=== PATIENT | female | born 1955 | race African-American/Black ===

== ENCOUNTER 2020-01-27 07:52 | Emergency (ER) | payer MEDICAID, OTHER ==
[~2020-01-27] VITALS: Ht 154.9 cm; Wt 94.8 kg
[~2020-01-27 07:52] MED LIST: ALLOPURINOL300 M1 ORAL; AMLODIPINE BESYL5 MG ORAL; ASPIRIN81 MG ORAL; BENZTROPINE MESY1 MG PO; GLIPIZIDE5 MG ORAL; LIPITOR20 MG ORAL; LOMOTIL TABLET1 EACH ORAL; LORATADINE10 M1 PO; LORAZEPAM1 MG ORAL; LOSARTAN POTASS50 MG ORAL; MAPAP325 M1 PO; METFORMIN HCL500 M1 ORAL; METRONIDAZOLE500 MG ORAL; NITROSTAT0.4 M1 SL; OMEPRAZOLE40 M1 ORAL; PEPCID20 MG ORAL; PROTONIX40 MG ORAL; TRAMADOL HCL50 MG ORAL; VALPROIC ACID250 MG PO; ZOFRAN4 M3 ORAL; ZYPREXA2.5 MG ORAL
[2020-01-27 08:03] VITALS: BP 138/89
--- NOTE | 2020-01-27 08:05 | NUR ---
ED Nurse Note:pt. c/o right shoulder /hand pain, she fell 1 month ago, had x-ray done, hx of arthritis
--- NOTE | 2020-01-27 08:21 | Emergency Room Report ---
History of Present Illness General Chief Complaint: Upper Extremity Injury Source: Patient Present Illness HPI 64-year-old -English female with prior history of psychosis, DM presents with chief complaint of right shoulder pain status post fall on the bus 1 month ago. She states she was initially seen by a physician who evaluated her head trauma and said "everything was normal". Patient has tried Motrin with relief of her symptoms, however stopped taking it secondary to feeling like it caused her to have "an upset stomach". She denies any syncope, headache, vision changes, neck pain, back pain, chest pain, shortness of breath, melena, hematochezia, n umbness, tingling or difficulty walking. The patient's symptoms were gradual onset, severity was moderate, duration since 1 month ago. Quality: Aching Past medical history: Psychosis, DM Past surgical history: Cholecystectomy, hernia repair Smoking: Denies Alcohol use: Denies Drug use: Denies Review of systems: CONST: No fevers or chills, No night sweats PULMONARY: No productive cough, No shortness of breath CARDIAC: No chest pain, No palpitations GI: No vomiting, No diarrhea , No melena_or_BRBPR : No dysuria, No hematuria, No discharge NEURO: No new_focal_weakness_or_numbness, No confusion, No vision changes 14 point Review of Systems is otherwise negative except per HPI Physical Exam: GENERAL: Awake_alert_ nontoxic, no acute distress Spo2 98% on RA -normal EYES: Extraocular muscles are intact. Conjunctivae clear. Lids without swelling ENT: External nose and ear normal_in_appearance. Oropharynx clear. Head_atraumatic, Moist_oral_mucosa NECK: No JVD. No meningismus. No thyromegaly. Supple. Trachea midline RESP: Normal respiratory effort. Symmetric rise. No stridor. Clear_to_auscultation_No_rales_No_wheezes CARDIAC: Regular rate and regular rhytm. No_significant pedal edema. ABDOMEN: Soft. Nondistended. Nontender_No_rebound_or_guarding. MSK: Normal muscle tone, without rigidity. Extremities without asymmetric deformity or swelling. Upper extremity exam: Right Elbow: No swelling / effusion appreciated, no significant pain with passive range of motion Wrist: No swelling / effusion appreciated, no significant pain with passive range of motion Lateral epicondyle: no tenderness / swelling / ecchymoses Medial epicondyle: no tenderness / swelling / ecchymoses Radial pulse: 2+ Capillary refill: <3 seconds in all fingers All fingers: full range of motion without any tenderness / swelling / deformity / evidence of infection Scaphoid: no tenderness / swelling / ecchymoses, no pain with axial loading of the thumb Radian / Median / Ulnar nerves: all intact (finger opposition, finger adduction / abduction, thumb dorsiflexion) Sensation intact to light touch: in all fingers Strength 5/5 with: wrist dorsi / volar flexion, 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 No visible cyanosis or pallor NEUROLOGIC: Alert, oriented x3. Motor_and_sensation_grossly_intact. No truncal ataxia. Gait_normal Psych: Normal mood and affect, normal judgment and insight - COORDINATION OF CARE Case was discussed with: Patient Any labs and imaging that were ordered were interpreted as part of the medical decision making: Medical Decision Making/Plan: Differential diagnosis includes musculoskeletal pain, fracture, dislocation, compartment syndrome, arterial occlusion, nerve damage, among others. Distally the patient has capillary refill <2 seconds and strong pulses. There is no pallor or pain out of proportion to exam. There is no significant swelling, deformity, or report of significant dislocation that subsequently reduced. No evidence of arterial occlusion or injury. The associated joints have full range of motion without any significant pain or restriction in mobility. No evidence at this time of major ligamentous disruption. Xrays of the right upper extremity are within normal limits, compartments are soft, the patient is able to bear weight and has no neurologic deficits. No evidence of fracture, dislocation, foreign body, significant nerve damage, compartment syndrome at this time. Patient was placed in a right upper extremity sling for comfort. Toradol was administered with relief of pain. Patient is neurologically intact with no abnormal cerebellar signs. Fall was one month ago. No recurrent head trauma. CT Jenkins head criteria negative. No blood thinner use. However, the patient was informed that occult fractures or foreign bodies are not always apparent on their first visit and understand to follow up with their regular doctor for a reevaluation within the next 2-3 days, to ensure their symptoms completely resolve. A Transit Bus Operator consult ordered. All needs were met during this ED visit including food and water, change of clothes, care home referral/resources, and transportation. PROCEDURE NOTE RUE Sling applied to right upper extremity Sling applied by jj with direct supervision by . Reassessed following splint application. Neurovascular intact. Compartments remain soft and compressible. Pt tolerated well without complications. Sling care instructions were discussed. 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 COVID-19 Screening: Negative COVID-19 COVID-19 Testing Source: [facility] Nursing Documentation-[facility] Past Medical History: No History, Except For Hx Cardiac Problems: No - RA Hx Hypertension: No Hx COPD: Yes Hx Diabetes: Yes Hx Cancer: No Hx Gastrointestinal Problems: No Hx Neurological Problems: No Physical Exam Vital Signs Date Time Temp Pulse Resp B/P (MAP) Pulse Ox O2 Delivery O2 Flow Rate FiO2 01/27/20 07:56 97.3 84 16 138/89 (105) 98 Room Air Sp02 EP Interpretation: reviewed, normal Medical Decision Making Diagnostic Impression: Primary Impression: Injury of right upper extremity Additional Impressions: Shoulder pain, right Hand pain, right Arm pain, right Fall Other X-Ray Diagnostic Results Other X-Ray Diagnostic Results : PA Scribe Text Right shoulder X-ray: Views: 3 view(s) No fracture. Normal alignment. Soft tissues normal. Joint spaces normal. Indication: Pain Impression: no acute disease The X-ray(s) were independently viewed and interpreted contemporaneously - Electronically signed by Mari christopher DO Right humerus X-ray: Views: 2 view(s) No fracture. Normal alignment. Soft tissues normal. Joint spaces normal. Indication: Pain Impression: DJD The X-ray(s) were independently viewed and interpreted contemporaneously - Electronically signed by Mari christopher DO Right hand X-ray: Views: 3 view(s) No fracture. Normal alignment. Soft tissues normal. Joint spaces normal. Indication: Pain Impression: no acute disease The X-ray(s) were independently viewed and interpreted contemporaneously - Electronically signed by Mari christopher DO Last Vital Signs Date Time Temp Pulse Resp B/P (MAP) Pulse Ox O2 Delivery O2 Flow Rate FiO2 01/27/20 08:03 97.3 84 16 138/89 98 Room Air Disposition: HOME, SELF-CARE Admit Decision Time: 08:21 Condition: Stable Scripts Acetaminophen* (TYLENOL EXTRA STRENGTH*) 500 Mg Tablet 500 MG ORAL Q8H PRN for Prn Headache/Temp > 101, #30 TAB 0 Refills Prov: Mari Alexis D.O. 01/27/20 Lidocaine Patch* (Lidoderm Patch*) 1 Each Adh..patch 1 PATCH TOPIC DAILY, #7 PATCH 0 Refills Patch(es) may remain in place for up to 12 hours in any 24-hour period. Prov: Mari Alexis D.O. 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 Follow-up with your doctor sooner if your condition requires a more timely clinical reevaluation. Return to the emergency department immediately if you feel that your condition is worsening or if you have any new or concerning symptoms. Review your discharge instructions and take any prescriptions given as instructed. [facility] PROVIDES FREE OR LOW-COST HEALTH SERVICES TO PEOPLE WHO CAN SHOW PROOF THAT THEY LIVE IN [facility]. TO FIND MORE CLINICS PARTNERED WITH THE [facility] TO PROVIDE SERVICE, PLEASE CALL . Mari Alexis D.O. Jan 27, 2020 08:21
[2020-01-27] MEDS ORDERED: TYLENOL EXTRA500 MG ORAL (08:23)
[2020-01-27] MEDS ORDERED: LIDODERM700 M1 TOPIC (08:23)
[2020-01-27] MEDS ORDERED: Ketorolac 60mg Inj IM ONE (08:30)
[2020-01-27 10:00] VITALS: BP 138/89
--- NOTE | 2020-01-27 10:00 | NUR ---
DISH UP PERSON NOTE SW met w/ pt to discuss homelessness. PT presents as A&O 4x. Pt reports she has been homeless for 6 months after leaving assisted living facility, which is now permanently closed. PT receives SSDI $900/mo and has no income left for this month. Pt has hx of fall. She recently received prescription for walker from her doctor and she is currently waiting the walker to be delivered to her daughter's address. Pt shares she is unable to stay w/ her daughter. Pt agreed to [facility]-in to [facility] until she gets her income. PRANAV provided the community resource packet including the list of housing facilities, emergency [facility] list and winter [facility] list. SW explained negative ramification of unlicensed facilities. Pt denies substance abuse. Pt declined counseling/tx intervention on substance abuse. Pt reports she has mental illness, did not provide the detail of her diagnosis. Pt denies being suicidal/homicidal. PRANAV encouraged pt to F/U w/ outpatient mental health service. The list of [facility] is provided as well. PT verbalized understanding. PRANAV provided jacket and shoes as per request. Pt will dc to preferred location upon DC. PRANAV attempted to call [facility] [phone], the call was transferred and not answered. PRANAV informed of such attempt to pt. PRANAV provided the bus route to the closest [facility] as per request.
--- NOTE | 2020-01-27 10:15 | NUR ---
discharged home with instruction and rx follow up with pmd .no pain now
--- NOTE | 2020-01-27 14:13 | Diagnostic Imaging Report ---
Indications: Right arm pain Technique: Two views of the right humerus Comparison: None Findings: No acute fracture. No dislocations. Impression: Negative
--- NOTE | 2020-01-27 14:16 | Diagnostic Imaging Report ---
Indication: Right shoulder pain status post fall Technique: 3 views of the right shoulder Comparison: none Findings: No acute fracture. No dislocations. There is some subchondral sclerosis and cyst formation which is probably degenerative in nature Impression: No acute process. Degenerative changes
--- NOTE | 2020-01-27 14:25 | Diagnostic Imaging Report ---
Indication: Right hand pain Technique: 2 views right hand Comparison: none Findings: Exam is limited due to the availability of only 2 views. There are severe degenerative changes of the first interphalangeal joint, less severe degenerative changes of the second and third distal interphalangeal joints. No definite acute fracture. No dislocations. Impression: No acute bony trauma Degenerative changes
== END 2020-01-27 10:15 | disposition home or self-care (01) ==
LOC: EDBD 07:52 → EMR 08:17
DX: S49.91XD Unspecified injury of right shoulder and upper arm, subsequent encounter (principal); M25.511 Pain in right shoulder; M79.641 Pain in right hand; M79.601 Pain in right arm; J44.9 Chronic obstructive pulmonary disease, unspecified; E11.9 Type 2 diabetes mellitus without complications; W01.0XXD Fall on same level from slipping, tripping and stumbling without subsequent striking against object, subsequent encounter; Z88.5 Allergy status to narcotic agent
CPT/HCPCS: 73030; 73060; 73120; 96372; Z7502; 99284